=== PATIENT | female | born 1985 | race Caucasian/White ===

== ENCOUNTER 2023-03-21 20:31 | Emergency (ER) | payer BC ==
[~2023-03-21] VITALS: Ht 165.1 cm; Wt 87.5 kg
[2023-03-21] MEDS ORDERED: SULF1TAB48 PO (21:05)
[2023-03-21] MEDS ORDERED: IBUP800T54 PO (21:05)
[2023-03-21] MEDS ORDERED: HYDR-4209 PO (21:05)
[2023-03-21] MEDS ORDERED: LIDOCAINE HCL 1% 20 ML VIAL ONE (21:06)
[2023-03-21] MEDS ORDERED: CEFTRIAXONE 1 G VIAL ONE (21:06)
[2023-03-21] MEDS ORDERED: SULFAMETH/TRIMETH 800/160 MG TABLET ONE (21:07)
[2023-03-21] MEDS ORDERED: HYDROCODONE/APAP 10-325 MG TABLET ONE (21:07)
[2023-03-21] MEDS ORDERED: CEFTRIAXONE 1 G VIAL IM ONE (21:15)
[2023-03-21] MEDS ORDERED: HYDROCODONE/APAP 10-325 MG TABLET PO ONE (21:15)
[2023-03-21] MEDS ORDERED: SULFAMETH/TRIMETH 800/160 MG TABLET PO ONE (21:15)
[2023-03-21 21:50] VITALS: BP 118/85; TEMP 98.5; O2SAT 100
== END 2023-03-21 21:50 | disposition home or self-care (01) ==
LOC: ER 20:39
DX: L02.214 Cutaneous abscess of groin (principal); L03.314 Cellulitis of groin; I10 Essential (primary) hypertension; E11.9 Type 2 diabetes mellitus without complications; F17.210 Nicotine dependence, cigarettes, uncomplicated; Z90.49 Acquired absence of other specified parts of digestive tract; Z79.1 Long term (current) use of non-steroidal anti-inflammatories (NSAID); Z79.899 Other long term (current) drug therapy
CPT/HCPCS: 99283; 96372; J0696; J3490; A4606; A4663